=== PATIENT | female | born 1955 | race Caucasian/White ===

== ENCOUNTER 2017-01-26 13:44 | Outpatient (CLI) | payer OTHER ==
--- NOTE | 2017-01-30 15:19 | Mammography Report ---
01/26/2017 CLINICAL HISTORY: A 61-year-old female in for routine screening mammogram. Patient's family history indicates no breast cancer. Patient has had surgical history of breast reduction. COMPARISON: 09/19/2010, 09/25/2011, 07/21/2014. TECHNIQUE: Craniocaudad and oblique lateral views of each breast were obtained with [employer] full fie ld digital mammography. FINDINGS: Heterogeneously dense breasts are noted bilaterally. Scarring is detected once again in e ach breast related to bilateral breast reduction surgery. A small cluster of calcifications has developed in the upper-outer quadrant of the right breast at th e 10 o'clock position. This cluster of calcifications is located 4.7 cm superolateral to the right n ipple. This cluster of calcifications probably is a result of the breast reduction surgery, but soto mmend patient return for magnification craniocaudad and mediolateral views and if indicated, right br east ultrasound. No significant masses are noted. IMPRESSION: A NEW SMALL CLUSTER OF CALCIFICATIONS IS SEEN IN THE 10 O'CLOCK POSITION OF THE RIGHT BR EAST. RECOMMEND PATIENT RETURN FOR ADDITIONAL STUDIES OF THE RIGHT BREAST DISCUSSED ABOVE. BIRADS CATEGORY: 0, INCOMPLETE. NEEDS ADDITIONAL IMAGING EVALUATION. STANDARD QUALIFYING STATEMENTS 1. This examination was reviewed with the aid of Computed-Aided Detection (CAD). 2. A negative or benign imaging report should not delay biopsy if clinically suspicious findings are present. Consider surgical consultation if warranted. More than 5% of cancers are not identified b y imaging. 3. Dense breasts may obscure an underlying neoplasm. JOB #: [id number] EXT JOB #:[id number]
== END 2017-01-26 13:45 | disposition home or self-care (01) ==
LOC: DI 13:44
PROVIDERS: ATTEND Physician Assistant Medical
DX: Z12.31 Encounter for screening mammogram for malignant neoplasm of breast (principal); R92.1 Mammographic calcification found on diagnostic imaging of breast
CPT/HCPCS: 77067

== ENCOUNTER 2017-02-21 12:50 | Outpatient (CLI) | payer OTHER ==
--- NOTE | 2017-02-22 16:12 | Mammography Report ---
DIGITAL DIAGNOSTIC RIGHT MAMMOGRAM: 02/21/2017 CLINICAL INDICATION: Calcifications. TECHNIQUE: Right true lateral and spot magnification views. COMPARISON: 01/26/2017, 07/21/2014, 09/25/2011, 09/19/2010. The right breast demonstrates scattered fibroglandular densities. The calcifications in question, in the right upper central breast, appear coarse on spot magnification views. No significant pleomorphism is seen. IMPRESSION: PROBABLE BENIGN CALCIFICATIONS. RECOMMENDATION: DIAGNOSTIC RIGHT MAMMOGRAM IN SIX MONTHS, TO ASSURE STABILITY. BIRADS CATEGORY: 3, PROBABLE BENIGN FINDINGS. STANDARD QUALIFYING STATEMENTS 1. This examination was reviewed with the aid of Computed-Aided Detection (CAD) . 2. A negative or benign imaging report should not delay biopsy if clinically suspicious findings are present. Consider surgical consultation if warranted. More than 5% of cancers are not identified by imaging. 3. Dense breasts may obscure an underlying neoplasm. JOB #: [id number] EXT JOB #: [id number] [facility]
== END 2017-02-21 12:51 | disposition home or self-care (01) ==
LOC: DI 12:50
PROVIDERS: ATTEND Physician Assistant Medical
DX: R92.1 Mammographic calcification found on diagnostic imaging of breast (principal)

== ENCOUNTER 2023-11-01 05:49 | Outpatient (CLI) | payer MEDICARE | END 2023-11-01 23:59 | disposition critical access hospital (66) | LOC: EMS 05:49 | DX: R05.9 Cough, unspecified (principal); R09.89 Other specified symptoms and signs involving the circulatory and respiratory systems | CPT/HCPCS: A0425; A0429 ==

== ENCOUNTER 2023-11-01 06:06 | Emergency (ER) | payer MEDICARE, OTHER ==
[2023-11-01 06:44] LABS: BASOPHILS # (AUTO) 0.1 10^3/uL (0.0-0.1); BASOPHILS % (AUTO) 0.7 %; EOSINOPHILS # (AUTO) 0.3 10^3/uL (0.0-0.7); HCT - HEMATOCRIT 40.6 % (37.0-47.0); HGB - HEMOGLOBIN 13.5 g/dL (12.0-16.0); LYMPHOCYTES # (AUTO) 2.8 10^3/uL (1.5-3.5); LYMPHOCYTES % (AUTO) 25.3 %; MEAN CORPUSCULAR HEMOGLOBIN 28.2 pg (27.0-31.0); MEAN CORPUSCULAR HGB CONC 33.3 g/dL (32.0-36.0); MEAN CORPUSCULAR VOLUME 84.9 fL (81.0-99.0); MONOCYTES # (AUTO) 0.8 10^3/uL (0.0-1.0); MONOCYTES % (AUTO) 7.4 %; NEUTROPHILS # (AUTO) 6.9 10^3/uL (1.5-6.6); NEUTROPHILS % (AUTO) 63.3 %; PLT - PLATELET COUNT 337 10^3/uL (130-450); RED BLOOD COUNT 4.78 10^6/uL (4.20-5.40)
[2023-11-01 06:48] LABS: VBG BASE EXCESS 0.1 mmol/L (-2 - +2); VBG HCO3 24.7 mmol/L (23-28); VBG OXYGEN SATURATION 69.7 % (60-80); VBG PCO2 39.9 mmHg (41-51); VBG PH 7.409 (7.31-7.41); VBG PO2 35.5 mmHg (25-47); VBG TOTAL CO2 25.9 mmol/L (24-29)
[2023-11-01 07:00] LABS: ALBUMIN 3.9 g/dL (3.2-5.5); ALBUMIN/GLOBULIN RATIO 1.2 (1.0-2.2); BILIRUBIN,TOTAL 0.3 mg/dL (0.2-1.0); CALCIUM 9.7 mg/dL (8.5-10.3); CREATININE 1.1 mg/dL (0.6-1.3); POTASSIUM 3.2 mmol/L (3.5-4.5); TOTAL PROTEIN 7.2 g/dL (6.4-8.9)
[2023-11-01 07:59] LABS: B. PARAPERTUSSIS- RESP PCR PAN NOT DETECTED; B. PERTUSSIS- RESP PCR PANEL NOT DETECTED; C. PNEUMONIAE- RESP PCR PANEL NOT DETECTED; CORONAVIRUS 229E-RESP PCR NOT DETECTED; CORONAVIRUS HKU1-RESP PCR NOT DETECTED; CORONAVIRUS NL63-RESP PCR NOT DETECTED; CORONAVIRUS OC43-RESP PCR NOT DETECTED; HUMAN METAPNEUMOVIRUS NOT DETECTED; INFLUENZA A- RESP PCR PANEL NOT DETECTED; INFLUENZA B - RESP PCR PANEL NOT DETECTED; M. PNEUMONIAE- RESP PCR PANEL NOT DETECTED; PARAINFLUENZA VIRUS 1 NOT DETECTED; PARAINFLUENZA VIRUS 2 NOT DETECTED; PARAINFLUENZA VIRUS 3 NOT DETECTED; PARAINFLUENZA VIRUS 4 NOT DETECTED; RHINOVIRUS/ENTEROVIRUS NOT DETECTED; RSV- RESP PCR PANEL NOT DETECTED; SARS-CoV-2 -RESP PCR PANEL NOT DETECTED
--- NOTE | 2023-11-01 08:03 | ED Physician Documentation ---
History of Present Illness - Stated complaint Stated Complaint: SOA - Chief complaint Chief Complaint: Resp - History obtained from History obtained from: Patient, Family - Additonal information Additional information: The patient comes to the emergency department chief complaint of cough and shortness of breath over the last approximately 10 days. The patient states that she was starting to feel little better yesterday like she had more energy, but the cough has persisted. She states that it is not productive of anything that comes "all the way up", but she does notice some congestion in her chest sometimes when she coughs. The patient states she ended up coming to the emergency department today because she had a coughing fit early this morning in which she felt like her throat spasmed up and she could not get a breath in or out. The patient states she was starting to blackout when she finally relaxed and was able to take of breath. The patient's has accompanied her and states he thinks that it lasted approximately 30 seconds. The patient denies any underlying lung issues. She is not a smoker currently and states it has been many years since she quit smoking. She states that she sees a tacker off once a year for "mild heart disease", but cannot be more specific about what kind of heart disease she has. 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 Patient states her transplants were about 18 years ago and that she has been stable since. No other complaints at this time. No fevers or chills. No nausea or vomiting. No diarrhea. No sore throat or congestion in her nose. She took a COVID test last week and it was negative. PD PAST MEDICAL HISTORY - Present Medications Home Medications: Ambulatory Orders Medication Instructions Recorded Confirmed Albuterol Sulf [Ventolin Hfa 1 - 2 puffs INH Q4HR PRN #1 each 11/01/23 Inhaler] Azithromycin [Zithromax] 0 mg PO DAILY #6 tablet 11/01/23 Benzonatate [Tessalon] 100 mg PO Q6H PRN #20 cap 11/01/23 Calcium Carbonate [Calcium] 1 tab PO BID 11/01/23 11/01/23 Escitalopram Oxalate [Lexapro] 1 tab PO DAILY 11/01/23 11/01/23 Magnesium Chloride [Magnesium] 64 mg PO DAILY 11/01/23 11/01/23 Rosuvastatin Calcium [Crestor] 10 mg PO DAILY PM 11/01/23 11/01/23 Tacrolimus [Prograf] 1 mg PO DAILY 11/01/23 11/01/23 amLODIPine [Norvasc] 10 mg PO DAILY 11/01/23 11/01/23 - Allergies Allergies/Adverse Reactions: Allergies Allergy/AdvReac Type Severity Reaction Status Date / Time pentazocine [From Talwin] Allergy Itching Verified 11/01/23 06:14 sulfamethoxazole Allergy Itching Verified 11/01/23 06:14 [From Bactrim] trimethoprim [From Bactrim] Allergy Itching Verified 11/01/23 06:14 PD ED PE NORMAL - Vitals Vital signs reviewed: Yes - General General: Alert and oriented X 3, No acute distress, Well developed/nourished - HEENT HEENT: Atraumatic, PERRL, EOMI, Moist mucous membranes - Neck Neck: Supple, no meningeal sign - Cardiac Cardiac: RRR, No murmur - Respiratory Respiratory: No respiratory distress, Clear bilaterally, Other (Occasional dry cough) - Abdomen Abdomen: Soft, Non tender, Non distended - Derm Derm: Normal color, Warm and dry, No rash - Extremities Extremities: No deformity, No edema, No calf tenderness / cord - Neuro Neuro: Alert and oriented X 3 - Psych Psych: Normal mood, Normal affect Results - Vitals Vitals: Vital Signs - 24 hr 11/01/23 11/01/23 06:08 07:47 Temperature 36.4 C L Heart Rate 81 73 Respiratory 20 15 Rate Blood Pressure 141/75 H 142/67 H O2 Saturation 95 95 Oxygen O2 Source Room air - Labs Labs: Laboratory Tests 11/01/23 11/01/23 11/01/23 06:12 06:40 06:40 WBC 11.0 H RBC 4.78 Hgb 13.5 Hct 40.6 MCV 84.9 MCH 28.2 MCHC 33.3 RDW 13.0 Plt Count 337 MPV 9.0 Neut # (Auto) 6.9 H Lymph # (Auto) 2.8 [place] # (Auto) 0.8 Eos # (Auto) 0.3 Baso # (Auto) 0.1 Absolute Nucleated RBC 0.00 Nucleated RBC % 0.0 VBG pH VBG pCO2 VBG pO2 VBG HCO3 VBG Total CO2 VBG O2 Saturation VBG Base Excess Sodium 136 Potassium 3.2 L Chloride 104 Carbon Dioxide 23 Anion Gap 9.0 BUN 17 Creatinine 1.1 Estimated GFR (MDRD) 50 L Glucose 112 H Calcium 9.7 Total Bilirubin 0.3 AST 16 ALT 9 L Alkaline Phosphatase 89 Total Protein 7.2 Albumin 3.9 Globulin 3.3 Albumin/Globulin Ratio 1.2 Lipase 41 Nasal Adenovirus (PCR) NOT DETECTED Nasal B. parapertussis DNA (PCR) NOT DETECTED Nasal Coronavir 229E PCR NOT DETECTED Nasal Coronavir HKU1 PCR NOT DETECTED Nasal Coronavir NL63 PCR NOT DETECTED Nasal Coronavir OC43 PCR NOT DETECTED Nasal Enterovir/Rhinovir PCR NOT DETECTED Nasal Influenza B PCR NOT DETECTED Nasal Influenza A PCR NOT DETECTED Nasal Parainfluen 1 PCR NOT DETECTED Nasal Parainfluen 2 PCR NOT DETECTED Nasal Parainfluen 3 PCR NOT DETECTED Nasal Parainfluen 4 PCR NOT DETECTED Nasal RSV (PCR) NOT DETECTED Nasal B.pertussis DNA PCR NOT DETECTED Nasal C.pneumoniae (PCR) NOT DETECTED Ulises Human Metapneumo PCR NOT DETECTED Nasal M.pneumoniae (PCR) NOT DETECTED Nasal SARS-CoV-2 (PCR) NOT DETECTED 11/01/23 06:40 WBC RBC Hgb Hct MCV MCH MCHC RDW Plt Count MPV Neut # (Auto) Lymph # (Auto) [place] # (Auto) Eos # (Auto) Baso # (Auto) Absolute Nucleated RBC Nucleated RBC % VBG pH 7.409 VBG pCO2 39.9 L VBG pO2 35.5 VBG HCO3 24.7 VBG Total CO2 25.9 VBG O2 Saturation 69.7 VBG Base Excess 0.1 Sodium Potassium Chloride Carbon Dioxide Anion Gap BUN Creatinine Estimated GFR (MDRD) Glucose Calcium Total Bilirubin AST ALT Alkaline Phosphatase Total Protein Albumin Globulin Albumin/Globulin Ratio Lipase Nasal Adenovirus (PCR) Nasal B. parapertussis DNA (PCR) Nasal Coronavir 229E PCR Nasal Coronavir HKU1 PCR Nasal Coronavir NL63 PCR Nasal Coronavir OC43 PCR Nasal Enterovir/Rhinovir PCR Nasal Influenza B PCR Nasal Influenza A PCR Nasal Parainfluen 1 PCR Nasal Parainfluen 2 PCR Nasal Parainfluen 3 PCR Nasal Parainfluen 4 PCR Nasal RSV (PCR) Nasal B.pertussis DNA PCR Nasal C.pneumoniae (PCR) Ulises Human Metapneumo PCR Nasal M.pneumoniae (PCR) Nasal SARS-CoV-2 (PCR) - Rads (name of study) Chest x-ray Relevant Findings:: Final report received, See rad report (Subtle changes in the lung bases raise possibility of infiltrate or pneumonitis. No pulmonary edema.) PD Medical Decision Making - ED course Complexity details: reviewed results, re-evaluated patient, considered differential, d/w patient ED course: The patient overall was well-appearing in the emergency department and her oxygen saturation was reasonable, in the mid 90s on room air. Her lung exam was clear COVID she demonstrated a an intermittent dry cough. She was worked up with labs, chest x-ray and respiratory PCR panel. Labs looked good and her PCR panel was negative.Chest x-ray was read by the radiologist as showing some subtle changes in the lung bases that could represent infiltrates or pneumonitis. Given that the patient is immunocompromised and has had a cough now for 10 days, I felt that it was reasonable to treat her with antibiotics based on this chest x-ray interpretation. She was given doses of Rocephin and Zithromax. She was also given a dose of Tessalon for her cough. Departure - Departure Disposition: 01 Home, Self Care Clinical Impression: Pneumonia Qualifiers: Pneumonia type: due to unspecified organism Laterality: bilateral Lung location: lower lobe of lung Qualified Code(s): J18.9 - Pneumonia, unspecified organism Condition: Stable Instructions: ED Pneumonia Adult Prescriptions: Albuterol Sulf [Ventolin Hfa Inhaler] 1 - 2 puffs INH Q4HR PRN #1 each PRN Reason: Shortness Of Air/Wheezing Benzonatate [Tessalon] 100 mg PO Q6H PRN #20 cap PRN Reason: Cough Azithromycin [Zithromax] 0 mg PO DAILY #6 tablet Comments: Your chest x-ray was interpreted by the radiologist as showing some subtle changes in the bases of your lungs that could be due to an infectious or inflammatory process. There is no distinct pneumonia but given the possibility of atypical infection, as well as the fact that you are immunosuppressed and have had a prolonged cough, we have started you on antibiotics. A prescription for the remainder of your antibiotics, along with cough medicine and the inhaler, have been electronically transmitted to the [facility] pharmacy in [place]. Please pick these up today and take your next dose of antibiotics tomorrow. Your viral panel came back completely negative. Your labs look good. Please schedule an appointment to follow-up with your primary doctor for furt her concerns. If you develop increasingly severe shortness of breath, please return for further evaluation. Otherwise, your illness is expected to resolve in the next week or so. Forms: PCP List
[2023-11-01] MEDS: BENZONATATE 100 MG CAPSULE PO STA (08:08)
[2023-11-01] MEDS: AZITHROMYCIN 250 MG TABLET PO STA (08:08)
[2023-11-01] MEDS: cefTRIAXone 2 GM in SODIUM CHLORIDE 0.9% MINIBAG 100 ML IV STA (08:09)
--- NOTE | 2023-11-01 08:27 | XRAY Report ---
PROCEDURE: Chest 1V INDICATIONS: Chest Pain TECHNIQUE: One view of the chest was acquired. COMPARISON: Chest radiographs 03/10/2016 FINDINGS: Surgical changes and devices: None. Lungs and pleura: Mild reticulonodular opacities are seen in the lung bases bilaterally. No pleural effusion or pneumothorax. Mediastinum: Mediastinal contours appear normal. Heart size is normal. Bones and chest wall: No suspicious bony lesions. Overlying soft tissues appear unremarkable. IMPRESSION: Mild bibasilar reticulonodular opacities, possibly secondary to a viral or atypical pneumonia versus mild edema or chronic interstitial changes. There is no significant discrepancy when compared with the preliminary overnight report. Reviewed by: Viktor Lindo MD on 11/01/2023 8:26 AM PST Approved by: Viktor Lindo MD on 11/01/2023 8:26 AM PST Station ID: [id number]
[2023-11-01 09:08] VITALS: BP 152/73; O2SAT 94
== END 2023-11-01 09:18 | disposition home or self-care (01) ==
LOC: EDUNIT# → ED 06:06
DX: J18.9 Pneumonia, unspecified organism (principal); Z79.899 Other long term (current) drug therapy
CPT/HCPCS: 36415; 71045; 80053; 82803; 83690; 85025; 87633; 96365; 99284; A9270